=== PATIENT | male | born 1945 | race Caucasian/White ===

== ENCOUNTER 2019-04-11 08:25 | Day surgery (SDC) | payer MEDICARE, OTHER ==
[~2019-04-11] VITALS: Ht 175.3 cm; Wt 97.5 kg
[2019-04-11] VITALS (11 sets, daily range): BP systolic 121–157; BP diastolic 65–86; PULSE 60–102; TEMP 97.5–97.9
[2019-04-11] MEDS ORDERED: VITAMIN D31000 I1 PO (10:00)
[2019-04-11] MEDS ORDERED: NORVASC 5MG5 MG/TAB PO (10:01)
[2019-04-11] MEDS ORDERED: OMEGA-3 FISH1000 MG PO (10:02)
--- NOTE | 2019-04-11 12:33 | NUR ---
Patient received post op. Report from Emperatriz CHEN. Patient to room 322-2 at bedside. Lunch ordered, he denies nausea. Scds ble. Pain to rolon insertion site, denies the need for pain medication. CBi to slow rate, output yellow & clear. Will ignacio.
[2019-04-11] MEDS ORDERED: NATURE'S BLEND600 M2 PO (13:50)
--- NOTE | 2019-04-11 15:20 | NUR ---
Patient resting in bed. Cbi slowed. Out pale yellow & clear. Will monitor.
--- NOTE | 2019-04-11 15:23 | NUR ---
SW met with the patient to discuss discharge plan. The patient lives in [place] with his , Sveta. He reports independence with ADLs and does not use any DME. The patient's primary care provider is CATIA Torres and he receives his medications at the [facility]. He reports no difficulties obtaining his meds. The patient does not have advanced directives in EMR, but he states that he does have them completed and that his DPOA-HC is his . The patient plans to return home with his upon discharge. No additional needs at this time.
--- NOTE | 2019-04-11 18:27 | NUR ---
Patient doing well. Cbi clapmed. tolerated diet. Minmal needs. WIll report off to night nurse
[2019-04-12 05:26] VITALS: BP 122/65; PULSE 63; TEMP 97.9
[2019-04-12 09:00] VITALS: BP 141/71; PULSE 60; TEMP 97.6
--- NOTE | 2019-04-12 09:00 | NUR ---
Patient resting in bed at this time. Patient has had breakfast, denies any nausea. CBI is clamped per order, urine is peach and clear. Order to prime and pull catheter recieved. Patient's bladder primed with approximately 200ml of irrigation solution and catheter removed. Approximately 35ml of water removed from balloon, rolon removed with no complications. Patient educated on 6 cup routine and urinal at bedside.
[2019-04-12 12:23] VITALS: BP 128/73; PULSE 61; TEMP 98
--- NOTE | 2019-04-12 15:00 | NUR ---
Discharge orders recieved. Patient is able to ambulate to the bathroom and dress independently. Discharge teaching completed with patient and . INT removed from right forearm, hemostasis achieved. Patient escorted out to personal vehicle.
== END 2019-04-12 15:21 | disposition home or self-care (01) ==
LOC: SDCO 08:25 → SURG 11:41 → SDCO 04-12 15:21
DX: N40.1 Benign prostatic hyperplasia with lower urinary tract symptoms (principal); R35.0 Frequency of micturition; R35.1 Nocturia; R33.8 Other retention of urine; R39.15 Urgency of urination; M10.9 Gout, unspecified; I10 Essential (primary) hypertension; Z85.828 Personal history of other malignant neoplasm of skin; Z87.440 Personal history of urinary (tract) infections; Z90.79 Acquired absence of other genital organ(s); Z79.82 Long term (current) use of aspirin; Z88.5 Allergy status to narcotic agent; Z88.1 Allergy status to other antibiotic agents; Z88.0 Allergy status to penicillin; Z88.8 Allergy status to other drugs, medicaments and biological substances; Z91.012 Allergy to eggs; Z91.011 Allergy to milk products; R39.198 Other difficulties with micturition
CPT/HCPCS: OP; J2405; J2704; J3010; J3301; J7120

== ENCOUNTER 2020-06-30 14:32 | Day surgery (SDC) | payer MEDICARE, OTHER ==
[~2020-06-30] VITALS: Ht 177.8 cm; Wt 93.5 kg
[2020-06-30] VITALS (8 sets, daily range): BP systolic 142–183; BP diastolic 66–95; PULSE 62–80; TEMP 98–98.8
[~2020-06-30 14:32] MED LIST: NATURE'S BLEND600 M2 PO; NORVASC 5MG5 MG/TAB PO; OMEGA-3 FISH1000 MG PO; VITAMIN D31000 I1 PO
[2020-06-30] MEDS ORDERED: FLONASE NASAL S16 GM NS (15:03)
[2020-06-30] MEDS ORDERED: MULTIPLE VITAMI1 TA5 PO (15:06)
--- NOTE | 2020-06-30 19:00 | NUR ---
To room 347 via bed from PACU. Oriented to room and policy. Plan of care discussed for discharge post criteria being met-voiding, tolerating PO and stable VS. Verbalizes understanding. Post op vitals initiated. Denies pain/nausea/shortness of breath. General diet tray provided and H2O. Call light in reach. Will monitor.
--- NOTE | 2020-06-30 21:00 | NUR ---
Has voided several times without difficulty. Tolerating PO. Initial vitals elevated usingi BRENNON-all blood pressures taken manually and WNL. Discharge instructions given both verbal/handwritten. Discussed when to return to ED, home meds, increasing fluid intake and calling office for F/U if needed. Verbalizes understanding. Denies questions/concerns. INT To right hand DCd-cath intact. Escorted off floor in wheelchair by staff.
== END 2020-06-30 21:10 | disposition home or self-care (01) ==
LOC: SDCO 14:32
DX: N20.1 Calculus of ureter (principal); Z20.828 Contact with and (suspected) exposure to other viral communicable diseases; M10.9 Gout, unspecified; I10 Essential (primary) hypertension; Z85.828 Personal history of other malignant neoplasm of skin; Z79.899 Other long term (current) drug therapy; Z88.1 Allergy status to other antibiotic agents; Z88.0 Allergy status to penicillin; Z88.8 Allergy status to other drugs, medicaments and biological substances
CPT/HCPCS: C1769; J0690; J2405; J2704; J3010; J7120; Q9967